=== PATIENT | female | born 1950 | race Caucasian/White ===

== ENCOUNTER 2024-02-09 09:35 | Outpatient (AMB) | payer MEDICARE, SELFPAY ==
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
== END 2024-02-09 10:59 | disposition home or self-care (01) ==
PROVIDERS: Referring Provider Internal Medicine; Visit Provider Neurological Surgery
DX: M51.16 Intervertebral disc disorders with radiculopathy, lumbar region (principal)
CPT/HCPCS: 99204

== ENCOUNTER → 2024-02-09 09:35 | Outpatient (BNVA) | payer MEDICARE, SELFPAY | PROVIDERS: Visit Provider Neurological Surgery | DX: M51.16 Intervertebral disc disorders with radiculopathy, lumbar region (principal) | CPT/HCPCS: 99202 ==

== ENCOUNTER 2024-02-23 09:42 | Outpatient (AMB) | payer MEDICARE, SELFPAY ==
--- NOTE | 2024-02-23 09:48 | HO.SPINEOV ---
Intake Visit Reasons: F/u after CT scan Intake Note: Ms. Fontaine is here to F/u after CT scan done at [place]. Eyeglass Lens Generator Required: No Assessment & Plan Assessment & Plan (1) Lumbar disc herniation with radiculopathy: Code(s): M51.16 - Intervertebral disc disorders with radiculopathy, lumbar region Category: Medical Plan Dear colleague, On 02/23/2024, I saw for follow-up Aranza Fontaine to review the CT scan of the lumbar spine and to finalize a surgical plan. Fortunately, the CT scan of the lumbar spine shows no calcification of the disc fragment, which is beneficial to the patient (and to me) and means that the L5 nerve root on the right side can be decompress without limitations. I offered her a right L4-5 redo laminotomy and decompression of her L5 nerve root. The procedure was discussed, including possible complications such as nerve root injury and spinal fluid leak. The patient wants to proceed. She scheduled for 04/10/2024. She will get preoperative clearance from her primary care physician and she is seeing her managed care director in the near future for follow-up of her diabetes, which has been well controlled. I spent 20 minutes in his consult. Hima Senior MD, PhD Spine Fellowship Trained Neurosurgeon Director, [facility] [place] [facility] Coding Level of Care Code Est Pt Level 3 (77349) Diagnoses Lumbar disc herniation with radiculopathy M51.16
== END 2024-02-23 10:54 | disposition home or self-care (01) ==
PROVIDERS: Visit Provider Neurological Surgery
DX: M51.16 Intervertebral disc disorders with radiculopathy, lumbar region (principal)
CPT/HCPCS: 99213

== ENCOUNTER → 2024-02-23 09:42 | Outpatient (BNVA) | payer MEDICARE, SELFPAY | PROVIDERS: Visit Provider Neurological Surgery | DX: M51.16 Intervertebral disc disorders with radiculopathy, lumbar region (principal) | CPT/HCPCS: 99212 ==